=== PATIENT | female | born 1990 | race African-American/Black ===

== ENCOUNTER 2020-09-26 12:30 | Inpatient (IN) | payer OTHER ==
[2020-09-26 13:42] VITALS: BMI 37.8
[2020-09-26] MEDS ORDERED: OXYTOCIN 30 UNITS in 0.9% NS 30 UNIT/500 ML INFUS.BAG IVPB ONE (13:52)
[2020-09-26] MEDS ORDERED: AMPICILLIN SODIUM 2 GM VIAL ONE (13:52)
[2020-09-26 14:08] LABS: BASO % 0.4 % (0-2.0); EOS % 0.5 % (0-4.5); HEMOGLOBIN 10.2 GM/dL (10.7-15.3); LYMPH % 30.5 % (8-40); MCH 28.8 pg (25.7-33.7); MEAN CELL VOLUME 87.1 fl (80-96); MEAN PLT VOLUME 8.7 fl (7.5-11.1); MONO % 11.4 % (3.8-10.2); NEUT % 57.2 % (42.8-82.8); PLATELET COUNT 235 K/MM3 (134-434); RBC 3.56 M/mm3 (3.60-5.2); RETICULOCYTES 2.02 % (0.5-1.5); WHITE BLOOD COUNT 9.9 K/mm3 (4.0-10.0)
[2020-09-26] MEDS ORDERED: OXYTOCIN 30 UNITS in 0.9% NS 30 UNIT/500 ML INFUS.BAG IVPB SCH (14:15)
[2020-09-26] MEDS ORDERED: DEXTROSE 5%-LACTATED RINGERS 1,000 ML IV SCH (14:15)
[2020-09-26 14:19] LABS: INR 0.93 (0.83-1.09); PROTHROMBIN TIME (PATIENT) 11.5 SEC (9.7-13.0)
[2020-09-26 14:22] LABS: ACTIVATED PTT 28.3 SECONDS (25.2-36.5)
[2020-09-26 14:24] LABS: POTASSIUM 4.1 mmol/L (3.5-5.1)
[2020-09-26 14:26] LABS: CALCIUM 8.1 mg/dL (8.5-10.1)
[2020-09-26 14:27] LABS: BLOOD UREA NITROGEN 12.7 mg/dL (7-18)
[2020-09-26 14:29] LABS: EPI CELLS >36 /uL (0-25.1); HYALINE CASTS 11 /uL (0-3.1); PH,URINE 6.5 (5.0-8.0); URINE APPEARANCE CLEAR; URINE BACTERIA 977 /uL (0-1359); URINE BILIRUBIN NEGATIVE (NEGATIVE); URINE COLOR YELLOW; URINE GLUCOSE (UA) NEGATIVE (NEGATIVE); URINE KETONE NEGATIVE (NEGATIVE); URINE LEUK ESTERASE NEGATIVE (NEGATIVE); URINE NITRITE NEGATIVE (NEGATIVE); URINE PROTEIN 4+ (NEGATIVE); URINE UROBILINOGEN 0.2 mg/dL (0.2-1.0); URINE WBC 25 /uL (0-25.8)
[2020-09-26 14:30] LABS: CREATININE 0.8 mg/dL (0.55-1.3); URIC ACID 7.4 mg/dL (2.6-7.2)
[2020-09-26] MEDS ORDERED: ELECTROLYTE-148 SOLN 1,000 ML IV SCH (14:30)
[2020-09-26 14:32] LABS: URINE RBC 20.4 /uL (0-23.9)
[2020-09-26] MEDS ORDERED: AMPICILLIN - 2 GM in SODIUM CHLORIDE 100 ML IVPB ONE (15:00)
[2020-09-26] MEDS ORDERED: PCA PUMP NR ONE ×2 (15:33→18:56)
[2020-09-26] MEDS ORDERED: FENTANYL/BUPIVACAINE/NS/PF - PCEA - 50 ML DISP.SYRIN EP ONE (15:33)
[2020-09-26] MEDS ORDERED: AMPICILLIN SODIUM 1 GM VIAL ONE (15:34)
[2020-09-26] MEDS ORDERED: OXYTOCIN 20 UNITS in 0.9% NS 20 UNIT/1,000 ML INFUS.BAG IV ONE (15:36)
[2020-09-26] MEDS ORDERED: BUPIVACAINE HCL/PF 0.25% (2.5MG/ML) 10 ML VIAL ONE (17:06)
[2020-09-26] MEDS: FENTANYL/BUPIVACAINE/NS/PF - PCEA - 50 ML DISP.SYRIN EP SCH (17:40)
[2020-09-26] MEDS: AMPICILLIN - 1 GM in SODIUM CHLORIDE 100 ML IVPB SCH ×2 (18:00→22:04)
[2020-09-26] MEDS ORDERED: NALOXONE HCL 0.4 MG/ML VIAL IVPUSH PRN (18:29)
[2020-09-26] MEDS ORDERED: BENZOCAINE 20% 57 GM BOTTLE TP PRN (19:16)
[2020-09-26] MEDS ORDERED: BENZOCAINE 28 GM HEMORRHOIDAL OINTMENT TP PRN (19:16)
[2020-09-26] MEDS ORDERED: WITCH HAZEL 50% (TUCKS) 40 PAD/JAR PAD TP PRN (19:16)
[2020-09-26] MEDS ORDERED: METHYLERGONOVINE MALEATE 0.2 MG/1 ML AMP IM PRN (19:16)
[2020-09-26] MEDS ORDERED: oxyCODONE HCL 5 MG TABLET PO PRN (19:16)
[2020-09-26] MEDS ORDERED: BISACODYL 10 MG SUPP.RECT RC PRN (19:16)
[2020-09-26] MEDS ORDERED: OXYTOCIN 20 UNITS in 0.9% NS 20 UNIT/1,000 ML INFUS.BAG IV SCH (19:30)
[2020-09-26] MEDS: NIFEdipine E.R. 30 MG TABLET PO SCH (19:40)
[2020-09-26] MEDS: LABETALOL HCL 200 MG TABLET (FP) PO SCH (22:19)
[2020-09-27] MEDS: IBUPROFEN 600 MG TABLET (FP) PO PRN ×3 (03:09→22:02)
[2020-09-27] MEDS: ACETAMINOPHEN 325 MG TABLET (FP) PO PRN ×3 (03:09→22:02)
[2020-09-27 09:16] LABS: BASO % 0.1 % (0-2.0); EOS % 0.4 % (0-4.5); HEMATOCRIT 31.4 % (32.4-45.2); HEMOGLOBIN 10.3 GM/dL (10.7-15.3); LYMPH % 26.8 % (8-40); MCH 28.8 pg (25.7-33.7); MCHC 32.8 g/dl (32.0-36.0); MEAN CELL VOLUME 87.9 fl (80-96); MEAN PLT VOLUME 9.3 fl (7.5-11.1); MONO % 11.6 % (3.8-10.2); NEUT % 61.1 % (42.8-82.8); PLATELET COUNT 239 K/MM3 (134-434); RBC 3.57 M/mm3 (3.60-5.2); RDW 16.1 % (11.6-15.6); WHITE BLOOD COUNT 16.9 K/mm3 (4.0-10.0)
[2020-09-27] MEDS ORDERED: DIPHTH,PERTUSS(ACELL),TET 0.5 ML DISP.SYRIN IM ONE (10:00)
[2020-09-27] MEDS: LABETALOL HCL 200 MG TABLET (FP) PO SCH ×2 (10:05→22:02)
[2020-09-27] MEDS: NIFEdipine E.R. 30 MG TABLET PO SCH (10:05)
[2020-09-27] MEDS: PRENATAL VITAMINS W/ FOLIC ACID TABLET (FP) PO SCH (10:05)
[2020-09-27] MEDS ORDERED: SENNOSIDES/DOCUSATE COMBO (SENNA PLUS) TABLET (UD) PO PRN (22:00)
[2020-09-28] MEDS: FENTANYL/BUPIVACAINE/NS/PF - PCEA - 50 ML DISP.SYRIN EP SCH (07:14)
[2020-09-28] MEDS: PRENATAL VITAMINS W/ FOLIC ACID TABLET (FP) PO SCH (09:42)
[2020-09-28] MEDS: LABETALOL HCL 200 MG TABLET (FP) PO SCH (09:42)
[2020-09-28] MEDS: NIFEdipine E.R. 30 MG TABLET PO SCH (09:42)
[2020-09-28 10:02] VITALS: BP 141/85; PULSE 92; TEMP 98.6
== END 2020-09-28 12:40 | disposition home or self-care (01) | DRG 560 ==
LOC: JLDR 12:30 → J3W 20:57
PROVIDERS: ADMIT Obstetrics & Gynecology; ATTEND Obstetrics & Gynecology
PROC: 10E0XZZ Delivery of Products of Conception, External Approach (ICD-10-PCS; principal; 2020-09-26)
DX: O14.94 Unspecified pre-eclampsia, complicating childbirth (principal); Z3A.37 37 weeks gestation of pregnancy; Z37.0 Single live birth
CPT/HCPCS: 36415; 59409; 80048; 81003; 82977; 83010; 84450; 84460; 84550; 85025; 85045; 85610; 85730; 86780; 86850; 86900; 86901; 87389; 90715; C9803; U0003

== ENCOUNTER 2022-11-16 04:22 | Day surgery (SDC) | payer OTHER ==
[2022-11-15 08:50] VITALS: BMI 30.2
[2022-11-16] MEDS ORDERED: BUPIVACAINE HCL/PF 0.5% (5MG/ML) 10 ML VIAL ONE (07:31)
[2022-11-16] MEDS ORDERED: PROPOFOL 20 ML ONE (07:44)
[2022-11-16] MEDS ORDERED: SUCCINYLCHOLINE CHLORIDE 200 MG/10 ML SYRINGE ONE (07:44)
[2022-11-16] MEDS ORDERED: MIDAZOLAM HCL 2 MG/2 ML SINGLE DOSE VIAL ONE (07:44)
[2022-11-16] MEDS ORDERED: ROCURONIUM BROMIDE 50 MG/5 ML SYRINGE ONE (07:45)
[2022-11-16] MEDS ORDERED: ceFAZolin SODIUM 1 GM VIAL IVPB ONE (08:10)
[2022-11-16] MEDS ORDERED: SUGAMMADEX SODIUM 200 MG/2 ML VIAL ONE (08:36)
[2022-11-16] MEDS ORDERED: LIDOCAINE HCL/PF 2% SDV 5ML VIAL ONE (08:40)
[2022-11-16] MEDS ORDERED: DEXAMETHASONE SOD PHOSPHATE 4 MG/1 ML VIAL ONE (08:40)
[2022-11-16] MEDS ORDERED: KETOROLAC TROMETHAMINE 30 MG/1 ML VIAL ONE (08:40)
[2022-11-16] MEDS ORDERED: ONDANSETRON 4 MG/2 ML VIAL ONE (08:40)
[2022-11-16] MEDS ORDERED: ceFAZolin SODIUM 1 GM VIAL ONE (08:40)
[2022-11-16] MEDS ORDERED: oxyCODONE HCL 5 MG TABLET PO PRN (08:55)
[2022-11-16] MEDS ORDERED: ONDANSETRON 4 MG/2 ML VIAL IVPUSH PRN (08:55)
[2022-11-16] MEDS ORDERED: PROMETHAZINE HCL 25 MG/1 ML VIAL IVPB PRN (08:55)
[2022-11-16] MEDS ORDERED: LACTATED RINGERS SOLUTION 1,000 ML IV SCH (09:00)
[2022-11-16] MEDS ORDERED: IBUPROFEN 600 MG TABLET (FP) PO PRN (10:08)
[2022-11-16] MEDS ORDERED: ACETAMINOPHEN 325 MG TABLET (FP) PO PRN (10:08)
[2022-11-16 10:34] VITALS: RESP 16
[2022-11-16 11:59] VITALS: BP 129/70; PULSE 70; TEMP 97.7
== END 2022-11-16 11:50 | disposition home or self-care (01) ==
LOC: JASU-SURG 04:22
PROVIDERS: ATTEND Obstetrics & Gynecology
PROC: 0U574ZZ Destruction of Bilateral Fallopian Tubes, Percutaneous Endoscopic Approach (ICD-10-PCS; principal; 2022-11-16 08:00)
DX: Z30.2 Encounter for sterilization (principal)
CPT/HCPCS: 94760